=== PATIENT | male | born 1965 | race Caucasian/White ===

== ENCOUNTER 2023-01-31 08:32 | Outpatient (CLI) | payer BC, SELFPAY ==
--- NOTE | ~2023-01-31 | XR_ITS ---
Right foot Technique: AP, oblique, and lateral views were obtained. Clinical History: Pain Findings: No acute fracture or dislocation is seen. Osseous alignment is anatomic. Joint spaces are p reserved without erosive or degenerative change. Plantar calcaneal spur present. Soft tissues are unr emarkable. Impression: Plantar calcaneal spur. Reviewed, dictated and finalized at location . Impression: Plantar calcaneal spur.
== END 2023-01-31 08:33 | disposition home or self-care (01) ==
LOC: CHSIMG 08:36
PROVIDERS: Visit Provider Orthopaedic Surgery
DX: M77.31 Calcaneal spur, right foot (principal); M79.671 Pain in right foot; M79.672 Pain in left foot
CPT/HCPCS: 73630